=== PATIENT | male | born 1975 | race American Indian/Alaskan Native ===

== ENCOUNTER 2019-05-10 06:30 | Emergency (ER) | payer MEDICAID, OTHER ==
--- NOTE | 2019-05-10 08:21 | Emergency Department Report ---
Chief Complaint: Sore Throat Stated Complaint: SORE THROAT Time Seen by Provider: 05/10/19 07:40 - HPI History of Present Illness: This is a 43-year-old male states that he was struck on the throat approximately 2 months ago while playing basketball. He's been having difficulty raising his voice states that he sometimes sounds raspy and cannot sing like he used to. He denies any difficulty swallowing chewing he denies any shortness of breath - ROS Review of Systems: He denies difficulty swallowing he denies chest pain shortness of breath or any difficulty moving his neck. - Exam Vital Signs: Vital Signs 05/10/19 06:36 Temperature 98.2 F Pulse Rate 56 L Respiratory 18 Rate Blood Pressure 117/74 O2 Sat by Pulse 100 Oximetry Physical Exam: Patient is awake alert and oriented. Skin warm dry and intact. Respirations easy and unlabored. He opens his mouth adequately no trismus tonsils are flat uvula midline no abnormality noted in the back of his throat. S1 and S2 is regular. His lungs are clear. MSE screening note: Focused history and physical exam performed. Instructed patient that he needs to follow up with [facility] ears nose and throat doctor I will refer him to Dr. Con Palacio ED Medical Decision Making - Medical Decision Making 43-year-old male stating that 2 months ago he was struck in the front of his throat while playing basketball and since then he's had changes in his voice. Patient stated were no abnormal findings. Since voice appears to be normal. Pt states that his voices sometimes raspy and he cannot feeling like he usually does. I explained to the patient that he would need further workup by an ENT doctor. Patient referred to ENT of his choice or to go to [facility] and schedule appointment for ENT clinic. ED Disposition for MSE Clinical Impression: Voice complaint Disposition: DC-01 TO HOME OR SELFCARE Is pt being admited?: No Does the pt Need Aspirin: No Condition: Stable Additional Instructions: You may follow up at [facility] located at [address] [place] [address] Junior Yin, [place], [place]. Call [phone] asked to make appointment for ENT clinic Or you may feel free to select any ENT doctor of your choice. Referrals: PRIMARY CARE, [Primary Care Provider] - 3-5 Days Time of Disposition: 08:32
[2019-05-10 08:52] VITALS: BP 116/71
== END 2019-05-10 08:45 | disposition home or self-care (01) ==
LOC: ED 06:30
DX: R49.9 Unspecified voice and resonance disorder (principal)